=== PATIENT | male | born 1940 | race Caucasian/White ===

== ENCOUNTER → 2016-10-30 | Outpatient (CLI) | payer OTHER ==
--- NOTE | 2016-10-30 12:06 | DIAGNOSTIC IMAGING REPORT ---
CT OF THE CHEST WITHOUT IV CONTRAST CLINICAL HISTORY: Prostate carcinoma. Renal mass status post chemotherapy. COMPARISON STUDY: 07/24/2016 CT DOSE: 2253.03 mGy.cm TECHNIQUE: CT of the thorax was performed from the thoracic inlet to the lung bases. Images are reviewed in the axial, sagittal, and coronal planes. IV contrast was not administered for this examination. FINDINGS: Thyroid: Imaged portions of the thyroid gland are normal in appearance. Thoracic aorta: There is mild ectasia of ascending thoracic aorta Heart: The heart is mildly enlarged. There are coronary artery calcifications. There is no pericardial effusion. Lungs and pleural spaces: There are no pleural effusions. There is dependent bibasal atelectasis. There is no focal pulmonary consolidation. Mediastinum: There is a stable mildly enlarged precarinal lymph node measuring 11 mm in short axis. Marleni: There is no evidence of pathologic hilar adenopathy given the limitations of a noncontrast study Axilla: Clear. Upper abdomen: There is infiltrative mass involving the upper pole the left kidney. This appears smaller than on the preceding study. There is infiltration of the soft tissues surrounding the left renal artery and aorta. Skeletal structures: There are multilevel degenerative changes with multilevel discogenic endplate sclerosis. Arthritic changes involve the left sternoclavicular joint. There is stable slight anterior subluxation of the left sternoclavicular joint. IMPRESSION: 1. No evidence of intrathoracic metastatic disease. 2. Stable minimally enlarged precarinal lymph node measuring 11 mm in short axis Electronically signed by: Emeka Sebastian M.D. 10/30/2016 12:04 PM Dictated Date/Time: 10/30/2016 11:58 AM
--- NOTE | 2016-10-30 12:24 | DIAGNOSTIC IMAGING REPORT ---
ABDOMEN AND PELVIS CT WITH ORAL CONTRAST CT DOSE: HISTORY: Renal mass CT TECHNIQUE: Multiaxial CT images of the abdomen and pelvis were performed following the use of oral contrast. COMPARISON STUDY: 06/13/2016 FINDINGS: Lung bases remain clear. Liver spleen and pancreas appear unremarkable. The left renal mass is similar in size and configuration. Headaches again extends to the midline structures. No current significant hydronephrosis. Mild infiltrative change left perinephric fat unchanged in the prior study. Mass extends to the left lateral margin of the aorta but this is unchanged. There appears to be no significant change in size or configuration of this process. Mild proximal periureteral infiltrative change persists as well. Bowel pattern is nonobstructive. Mild chronic sigmoid diverticulosis. Radioactive seeds within the prosthetic bed. Bowel pattern throughout is nonobstructive. Right kidney is negative for hydronephrosis. IMPRESSION: 1. Left renal mass showing evidence for locally invasive change. 2. No major change compared to the prior study. 3. No evidence for hydronephrosis or obstructive change on the current exam. 4. All remaining components of the study remain stable and unchanged from the prior exam. Electronically signed by: Amrit Cortez M.D. 10/30/2016 12:23 PM Dictated Date/Time: 10/30/2016 12:02 PM
== END | disposition home or self-care (01) ==
LOC: C.CTS 11:26
PROVIDERS: ATTEND Internal Medicine Hematology & Oncology
DX: C61 Malignant neoplasm of prostate (principal); N28.89 Other specified disorders of kidney and ureter

== ENCOUNTER → 2017-01-07 | Outpatient (CLI) | payer OTHER ==
[~2017-01-07] MED LIST: OPTIRAY 320 IV PRN
--- NOTE | 2017-01-07 12:11 | DIAGNOSTIC IMAGING REPORT ---
ABDOMEN AND PELVIS CT WITH IV AND ORAL CONTRAST CT DOSE: 1107.68 mGycm HISTORY: Renal mass PROSTATE CANCER CREATININE 1.3 12/09/16 TECHNIQUE: Multiaxial CT images of the abdomen and pelvis were performed following the use of intravenous and oral contrast. COMPARISON STUDY: 10/30/2016 FINDINGS: Minimal basilar interstitial change. Liver is uniform in appearance. Gallbladder is negative for distention. Right kidney enhances uniformly. The mass of left kidney appearing to originate from the medial aspect of left kidney continues to extend to the left periaortic and retroperitoneal Region. It shows a considerable decrease in volume, however, estimated at 50%. There is focal extension to the inferior ke of the left hemidiaphragm. This is unchanged. Extension to the left lateral boundary of the descending abdominal aorta is similar. Pancreas appears to be unremarkable. Bowel pattern within the abdomen and pelvis is nonobstructive. Multiple radioactive seeds are identified within the prosthetic bed. No significant pelvic or inguinal adenopathy is noted. IMPRESSION: 1. Moderate decrease in volume of a left renal mass.. 2. This again appears to be locally invasive with overall improvement in volume estimated at 50%. 3. Study otherwise remains unremarkable and unchanged. Electronically signed by: Amrit Cortez M.D. 01/07/2017 12:09 PM Dictated Date/Time: 01/07/2017 12:02 PM
== END | disposition home or self-care (01) ==
LOC: C.CTS 11:40
PROVIDERS: ATTEND Internal Medicine Hematology & Oncology
DX: C61 Malignant neoplasm of prostate (principal); N28.89 Other specified disorders of kidney and ureter